=== PATIENT | female | born 1995 | race Caucasian/White ===

== ENCOUNTER 2025-02-23 15:09 | Emergency (ER) | payer MEDICAID ==
[~2025-02-23] VITALS: Ht 167.6 cm; Wt 77.1 kg
[2025-02-23 15:19] VITALS: BP 111/72; TEMP 98.1
[2025-02-23] MEDS ORDERED: BREA1EAC TP (15:36)
[2025-02-23 15:50] VITALS: O2SAT 100
== END 2025-02-23 15:51 | disposition home or self-care (01) ==
LOC: ER 15:16
DX: N64.4 Mastodynia (principal); Z91.148 Patient's other noncompliance with medication regimen for other reason